=== PATIENT | female | born 1965 | race Caucasian/White ===

== ENCOUNTER → 2017-01-02 | Outpatient (CLI) | payer OTHER | END | disposition home or self-care (01) | LOC: C.PAPS 14:39 | PROVIDERS: ATTEND Family Medicine | DX: Z12.4 Encounter for screening for malignant neoplasm of cervix (principal) ==

== ENCOUNTER → 2017-12-26 | Outpatient (CLI) | payer BC ==
[2017-12-26 13:10] LABS: HEMOGLOBIN 13.9 g/dL (12.0-16.0); MEAN CELL VOLUME 90.1 fL (80-100); MEAN CORPUSCULAR HEMOGLOBIN 31.3 pg (25-34); MEAN CORPUSCULAR HGB CONC 34.8 g/dl (32-36); MEAN PLATELET VOLUME 9.2 fL (7.4-10.4); PLATELET COUNT 278 K/uL (130-400); RED CELL DISTRIBUTION WIDTH CV 12.4 % (11.5-14.5); RED CELL DISTRIBUTION WIDTH SD 40.5 fL (36.4-46.3); WHITE BLOOD COUNT 3.93 K/uL (4.8-10.8)
[2017-12-26 13:18] LABS: ALBUMIN 4.1 gm/dl (3.4-5.0); ALT/SGPT 23 U/L (12-78); AST/SGOT 23 U/L (15-37); BLOOD UREA NITROGEN 12 mg/dl (7-18); CALCIUM 9.1 mg/dl (8.5-10.1); CARBON DIOXIDE 27 mmol/L (21-32); CHOLESTEROL 151 mg/dl (0-200); CREATININE 0.81 mg/dl (0.60-1.20); GLUCOSE 89 mg/dl (70-99); POTASSIUM 3.7 mmol/L (3.5-5.1); SODIUM 141 mmol/L (136-145)
[2017-12-26 13:21] LABS: ALKALINE PHOSPHATASE 31 U/L (45-117); LDL CHOLESTEROL CALCULATED 74 mg/dl; TOTAL PROTEIN 7.1 gm/dl (6.4-8.2)
[2017-12-26 13:32] LABS: BASO % 0.5 %; BASO ABS # 0.02 K/uL (0-0.2); EOS % 2.8 %; EOS ABS # 0.11 K/uL (0-0.5); LYMPH % 51.4 %; LYMPH ABS # 2.02 K/uL (1.2-3.4); MONO % 6.9 %; MONO ABS # 0.27 K/uL (0.11-0.59); NEUT % 38.4 %; NEUT ABS # 1.51 K/uL (1.4-6.5)
== END | disposition home or self-care (01) ==
LOC: C.LABMFLN 09:36
PROVIDERS: ATTEND Family Medicine
DX: F32.9 Major depressive disorder, single episode, unspecified (principal); E78.5 Hyperlipidemia, unspecified

== ENCOUNTER → 2018-01-09 | Outpatient (CLI) | payer BC | END | disposition home or self-care (01) | LOC: C.LABMFLN 09:21 | PROVIDERS: ATTEND Family Medicine | DX: M81.0 Age-related osteoporosis without current pathological fracture (principal) ==

== ENCOUNTER 2018-04-03 05:42 | Observation (INO) | payer BC ==
[2018-03-28 15:47] VITALS: BMI 23.0
[2018-03-29 09:12] VITALS: Ht 147.3 cm; Wt 60.8 kg
--- NOTE | 2018-03-29 09:37 | PAT Medication Instructions ---
Service Date Mar 29, 2018. Current Home Medication List Alendronate/Cholecalciferol (Fosamax+D 70MG/2800 Iu), 1 TABLET PO WK Aspirin (Aspirin Ec), 81 MG PO QAM Calcium/Vitamin D (Os-Saul 500 Plus D), 1 TAB PO QAM Cholecalciferol (Vitamin D3), 1 TAB PO QAM Escitalopram Oxalate (Lexapro), 20 MG PO QAM Hydrocortisone Acetate (Rectal (Anusol-Hc), 25 MG [place] BID PRN for PRN Melatonin (Melatonin Maximum Strengt), 1 TAB PO HS PRN for Insomnia Psyllium (Metamucil), 1 DOSE PO QAM Simvastatin (Zocor), 20 MG PO HS Venlafaxine Hcl (Effexor), 37.5 MG PO QAM Medication Instructions For Your Scheduled Surgery -Continue as directed: Alendronate/Cholecalciferol (Fosamax+D 70MG/2800 Iu), 1 TABLET PO WK -Continue to hold per surgeon's instructions: Aspirin (Aspirin Ec), 81 MG PO QAM - Hold the following medications the morning of surgery: Calcium/Vitamin D (Os-Saul 500 Plus D), 1 TAB PO QAM Cholecalciferol (Vitamin D3), 1 TAB PO QAM Hydrocortisone Acetate (Rectal (Anusol-Hc), 25 MG [place] BID PRN for PRN Psyllium (Metamucil), 1 DOSE PO QAM - Take the following medications the morning of surgery with a sip of water: Escitalopram Oxalate (Lexapro), 20 MG PO QAM Venlafaxine Hcl (Effexor), 37.5 MG PO QAM - Take the following medications as scheduled the night before surgery: Melatonin (Melatonin Maximum Strengt), 1 TAB PO HS PRN for Insomnia (if needed) Simvastatin (Zocor), 20 MG PO HS If you have any questions please call us at [phone] or [phone] or [phone]
[2018-03-29 11:07] LABS: BASO % 0.5 %; BASO ABS # 0.02 K/uL (0-0.2); EOS % 2.9 %; EOS ABS # 0.12 K/uL (0-0.5); HEMATOCRIT 40.6 % (37-47); LYMPH % 49.3 %; LYMPH ABS # 2.04 K/uL (1.2-3.4); MEAN CORPUSCULAR HEMOGLOBIN 31.4 pg (25-34); MEAN CORPUSCULAR HGB CONC 34.5 g/dl (32-36); MEAN PLATELET VOLUME 9.2 fL (7.4-10.4); MONO % 8.5 %; MONO ABS # 0.35 K/uL (0.11-0.59); NEUT % 38.8 %; NEUT ABS # 1.61 K/uL (1.4-6.5); PLATELET COUNT 307 K/uL (130-400); RED CELL DISTRIBUTION WIDTH CV 12.6 % (11.5-14.5); RED CELL DISTRIBUTION WIDTH SD 41.7 fL (36.4-46.3); WHITE BLOOD COUNT 4.14 K/uL (4.8-10.8)
[2018-03-29 11:16] LABS: CREATININE 0.77 mg/dl (0.60-1.20)
[2018-03-29 11:17] LABS: CALCIUM 9.1 mg/dl (8.5-10.1); POTASSIUM 4.4 mmol/L (3.5-5.1)
[2018-04-03] VITALS (9 sets, daily range): BP systolic 96–130; BP diastolic 64–77; PULSE 74–89; TEMP 36.4–36.8; O2SAT 93–100
[~2018-04-03] VITALS: Ht 147.3 cm; Wt 60.8 kg
[~2018-04-03 05:42] MED LIST: ASPI81TA28 PO; CALC500C70 PO; CHOL1000 PO; EFF/375 PO; ESCI1TAB10 PO; FSMD/70 PO; HYDR25SU20 PR; MELATAB2 PO; PSYL48.59 PO; SIMV20TA2 PO
[2018-04-03] MEDS ORDERED: SCOPOLAMINE 1.5 MG TDSY TD SCH (06:00)
[2018-04-03] MEDS ORDERED: CEFAZOLIN 2000MG IV PUSH 15 ML IV SCH (06:00)
[2018-04-03] MEDS ORDERED: LACTATED RINGER'S 1000ML 1,000 ML IV SCH (06:00)
[2018-04-03] MEDS ORDERED: FENTANYL CITRATE INJ 50 MCG/1 ML 2 ML VIAL ONE (06:53)
[2018-04-03] MEDS ORDERED: LIDOCAINE HCL 2% 2 ML VIAL (20MG/ML) ONE (06:53)
[2018-04-03] MEDS ORDERED: ROCURONIUM BROMIDE 10 MG/ML 5 ML VIAL ONE ×2 (06:53→11:02)
[2018-04-03] MEDS ORDERED: MIDAZOLAM HCL 1 MG/ML 2ML VIAL ONE (06:53)
[2018-04-03] MEDS ORDERED: PROPOFOL IV EMULSION 10 MG/ML 20 ML VIAL ONE (06:53)
[2018-04-03] MEDS ORDERED: ONDANSETRON INJ 2 MG/ML 2 ML VIAL ONE (06:53)
[2018-04-03] MEDS ORDERED: GENTAMICIN SULFATE 40 MG/ML 2 ML VIAL ONE (06:58)
[2018-04-03] MEDS ORDERED: LIDOCAINE/EPINEPHRINE 1% 20 ML VIAL ONE (06:58)
[2018-04-03] MEDS ORDERED: BUPIVACAINE 0.25% 30 ML VIAL ONE (06:58)
[2018-04-03] MEDS ORDERED: BACITRACIN 50000 UNIT VIAL ONE (06:59)
[2018-04-03] MEDS ORDERED: CEFAZOLIN SOD 1 GM VIAL ONE (06:59)
--- NOTE | 2018-04-03 07:02 | History & Physical Bridge Note ---
H&P Re-Evaluation Bridge Note: I have examined the patient, reviewed the History & Physical and in the interval since the performance of the History & Physical I have noted the following changes of clinical significance: No changes noted
[2018-04-03] MEDS ORDERED: FENTANYL CITRATE INJ 50 MCG/1 ML 2 ML VIAL IV PRN (07:30)
[2018-04-03] MEDS ORDERED: ONDANSETRON INJ 2 MG/ML 2 ML VIAL IV PRN ×2 (07:30→11:15)
[2018-04-03] MEDS ORDERED: ATROPINE SULFATE 0.1 MG/ML 5ML SYR IV PRN (07:30)
[2018-04-03] MEDS ORDERED: EpHEDrine SULFATE INJ 50 MG/ML AMP IV PRN (07:30)
[2018-04-03] MEDS ORDERED: HYDROmorphone INJ 1 MG/ML SYR IV PRN (07:30)
[2018-04-03] MEDS ORDERED: PHENYLEPHRINE 100MCG/ML 5ML SYR ONE (08:28)
[2018-04-03] MEDS ORDERED: EpHEDrine SULFATE 50MG/5ML SYR ONE (08:28)
[2018-04-03] MEDS ORDERED: ACETAMINOPHEN 1000 MG/100 ML IV IV ONE (08:37)
[2018-04-03] MEDS ORDERED: MoRPHine SULFATE PF 1 MG/ML 10 ML AMP/VIAL ONE (09:46)
[2018-04-03] MEDS ORDERED: MoRPHine SULFATE 2 MG/ML CARP IV PRN (11:15)
[2018-04-03] MEDS ORDERED: HYDROCORTISONE ACETATE 25 MG SUPP PR PRN (11:15)
[2018-04-03] MEDS ORDERED: MoRPHine SULFATE 4 MG/ML 1 ML CARP\\VIAL IV PRN ×2 (11:15)
[2018-04-03] MEDS ORDERED: PROMETHAZINE HCL INJ 12.5 MG in SODIUM CHLORIDE 0.9% 50ML 50 ML IV PRN (11:15)
[2018-04-03] MEDS ORDERED: OXAZEPAM 10MG CAP PO PRN (11:15)
[2018-04-03] MEDS ORDERED: NON-FORMULARY MEDICATION (Melatonin (Melatonin Maximum Strengt) 1 TAB) PO PRN (11:15)
[2018-04-03] MEDS ORDERED: DiphenhydrAMINE HCL 50 MG/ML VIAL IV PRN (11:15)
[2018-04-03] MEDS ORDERED: ACETAMINOPHEN 325 MG TAB PO PRN (11:15)
[2018-04-03] MEDS ORDERED: CEFAZOLIN IV 1,000 MG in DEXTROSE 5% 50ML 50 ML IV SCH (11:15)
[2018-04-03] MEDS ORDERED: OXYCODONE/ACETAMINOPHEN 5-325 TAB PO PRN ×2 (11:15)
--- NOTE | 2018-04-03 11:15 | [facility] Post Operative Brief Note ---
Immediate Operative Summary Operative Date Apr 03, 2018. Pre-Operative Diagnosis Bilateral Symptomatic Macromastia Post-Operative Diagnosis Same as preop Procedure(s) Performed Bilateral Breast Reduction with Free Nipple Graft Surgeon Dr. Morales Neurology Tech Surgeon(s) None Estimated Blood Loss 25 ml Findings Consistent with Post-Op Diagnosis Specimens A. Left Breast Tissue wt. 382 grams B. Right Breast Tissue wt. 388 grams Drains JPx2 Anesthesia Type General Complication(s) none Disposition Disposition: Recovery Room / PACU
[2018-04-03] MEDS ORDERED: IV FLUIDS COMPLETED PRN (12:45)
[2018-04-03] MEDS ORDERED: VENL-57 PO (13:03)
--- NOTE | 2018-04-03 14:12 | Anesthesiology Progress Note ---
Anesthesia Post Op Note Date & Time Apr 03, 2018 at 14:10 Vital Signs Pain Intensity: 0 Vital Signs Past 12 Hours Date Time Temp Pulse Resp B/P (MAP) Pulse Ox O2 Delivery O2 Flow Rate FiO2 04/03/18 13:05 85 16 99/64 (76) 99 2.0 04/03/18 12:55 80 16 106/73 (84) 100 2.0 04/03/18 12:25 97 Nasal Cannula 4.0 04/03/18 12:25 97 Nasal Cannula 4.0 04/03/18 12:24 36.5 86 15 96/64 (75) 97 Nasal Cannula 4.0 04/03/18 12:10 36.4 78 24 101/61 99 Nasal Cannula 4 04/03/18 12:00 36.4 78 17 110/67 100 Nasal Cannula 4 04/03/18 11:50 82 14 103/69 99 Nasal Cannula 4 04/03/18 11:40 78 14 101/74 97 Oxymask 10 04/03/18 11:30 92 15 123/74 100 Oxymask 10 04/03/18 11:23 36.2 100 20 118/81 97 Oxymask 10 04/03/18 06:02 36.6 75 18 130/77 (94) 97 Room Air Notes Mental Status: alert / awake / arousable, participated in evaluation Pt Amnestic to Procedure: Yes Nausea / Vomiting: adequately controlled Pain: adequately controlled Airway Patency, RR, SpO2: stable & adequate BP & HR: stable & adequate Hydration State: stable & adequate Anesthetic Complications: no major complications apparent
[2018-04-03] MEDS: CEFAZOLIN IV 1,000 MG in SYRINGE 0 ML IV SCH ×2 (14:29→22:22)
[2018-04-03] MEDS: D5W AND 1/2NSS + 20MEQ KCL 1,000 ML IV SCH (14:29)
[2018-04-03] MEDS: CHECK SCOPOLAMINE PATCH PLACEMENT SCH (15:29)
--- NOTE | 2018-04-03 19:17 | OPERATIVE REPORT ---
DATE OF OPERATION: 04/03/2018 PREOPERATIVE DIAGNOSIS: Bilateral symptomatic macromastia. POSTOPERATIVE DIAGNOSIS: Bilateral symptomatic macromastia. PROCEDURE: Bilateral breast reduction with free nipple graft. SURGEON: Dr. Kasandra Morales. UNIX ANALYST: Sadaf Kim PA-C. ESTIMATED BLOOD LOSS: 25 mL. COMPLICATIONS: None. INDICATION FOR THE PROCEDURE: The patient is a 52-year-old female who presented to my office with complaints of back, neck, and shoulder pain as a result of macromastia. She had previously undergone breast reduction surgery about 20 years ago in the [place] area by an unknown surgeon. She reported dissatisfaction with the results following that wishing that she had been a smaller size and that there was asymmetry in the final outcome. Over time, breasts got larger again and she desired to have secondary reduction performed. As there were no operative records and she was uncertain of the technique that was used, we elected to perform this with a free nipple graft. BRIEF DESCRIPTION OF THE PROCEDURE: The risks, benefits, and alternatives of the procedure were explained to the patient who agreed and signed consent. She was identified and marked in the preoperative holding area. She was brought to the operating room where she was positioned supine and placed under general anesthesia without incident. Surgical site markings were again reassessed. I began with the left breast. Lidocaine 1% with epinephrine was used to anesthetize the planned incisions as well as the nipple areolar complex. A breast tourniquet was applied using a Kate clamp and lap sponge. A 42 mm cookie cutter was used to circumscribe the nipple-areolar complex. The nipple-areolar complex was then removed as a full thickness graft and placed on the back table in a saline soaked sponge. At this point, tourniquet was released and the inframammary fold incision was made using a 15 blade scalpel. Electrocautery was used to deepen the incision through subcutaneous fat and breast parenchyma down to chest wall. Care was taken to perform this in a beveled direction ligating vessels as needed and achieving hemostasis with electrocautery. Once the breast was mostly undermined, the superior incision was then made to the inferior aspect of the keyhole incision. This was performed using a 15 blade scalpel. The incision was then deepened using electrocautery and additional breast parenchyma was resected again in beveled fashion in order to retain some projection of the breast. Tissue was passed off for weighing. Additional resection was performed until we achieved the desired size and the wound was able to be closed with minimal tension. This was a total of 382 grams on the left side. Hemostasis was achieved with electrocautery. The wound bed was anesthetized using 0.25% Marcaine plain. A 15-H[place]er Sohail drain was brought through a separate stab incision laterally toward the axilla. The keyhole was then incised using a 15 blade scalpel and deepithelialized. The T-junction was then brought together using 2-0 Vicryl suture. Closure was begun first lateral to medial using 2-0 Vicryl deep dermal sutures. The vertical limb was closed using a combination of 2-0 Vicryl deep dermal sutures and 3-0 PDS interrupted dermal sutures. The inframammary fold was closed using 2-0 PDO deep dermal running Quill suture. Vertical limb was then closed using 3-0 Monocryl running subcuticular suture. The nipple-areolar complex was inspected and thinned using a curved iris scissor. It was placed in the recipient bed and sutured into place using 4-0 silk tie over bolster sutures and 4-0 chromic interrupted sutures. A similar procedure was undertaken on the right side. Total resection weight was 388 grams on the right. It should be noted that while preoperatively the left breast did appear to be larger. I did attempt to perform temporary closure of the breast with a smaller amount of resected tissue on the right and the right breast appeared to be substantially larger and therefore I continued resection. Following the close of the case, there was excellent symmetry between the breasts. There were no complications. Dermabond Prineo was applied to the incisions. Dry dressings followed by a surgical bra were placed. The patient was awakened and transferred to recovery in satisfactory condition. Sadaf Kim was present and scrubbed throughout the entire procedure and was instrumental in providing retraction, preparing the nipple graft, and assisting in simultaneous wound closure. I attest to the content of the Intraoperative Record and any orders documented therein. Any exception s are noted below.
[2018-04-03] MEDS ORDERED: SIMVASTATIN 20 MG TAB PO SCH (21:00)
[2018-04-04] MEDS: CHECK SCOPOLAMINE PATCH PLACEMENT SCH ×2 (00:14→08:00)
[2018-04-04 04:07] VITALS: BP 97/67; PULSE 91; TEMP 36.9; O2SAT 93
[2018-04-04 07:36] VITALS: BP 118/68; PULSE 98; TEMP 37.3; O2SAT 94
[2018-04-04 07:45] VITALS: BP 118/68; PULSE 98; TEMP 37.3; O2SAT 94
--- NOTE | 2018-04-04 07:48 | Surgery Progress Note ---
Surgery Progress Note Date of Service Apr 04, 2018. Subjective Post OP Day: 1 + feeling well, + ambulating, + pain controlled, + nausea Objective Vital Signs: Date Time Temp Pulse Resp B/P (MAP) Pulse Ox O2 Delivery O2 Flow Rate FiO2 04/04/18 07:36 37.3 98 20 118/68 (85) 94 Room Air 04/04/18 04:07 36.9 91 14 97/67 (77) 93 Room Air 04/03/18 23:50 Room Air 04/03/18 23:14 36.8 89 16 102/69 (80) 95 Room Air 04/03/18 19:48 36.6 76 17 100/68 (79) 98 Room Air 04/03/18 15:25 Room Air 04/03/18 15:07 36.4 81 17 100/67 (78) 98 Room Air 04/03/18 14:05 74 16 100/67 (78) 93 Room Air 04/03/18 13:05 85 16 99/64 (76) 99 2.0 04/03/18 12:55 80 16 106/73 (84) 100 2.0 04/03/18 12:25 97 Nasal Cannula 4.0 04/03/18 12:25 97 Nasal Cannula 4.0 04/03/18 12:24 36.5 86 15 96/64 (75) 97 Nasal Cannula 4.0 04/03/18 12:10 36.4 78 24 101/61 99 Nasal Cannula 4 04/03/18 12:00 36.4 78 17 110/67 100 Nasal Cannula 4 04/03/18 11:50 82 14 103/69 99 Nasal Cannula 4 04/03/18 11:40 78 14 101/74 97 Oxymask 10 04/03/18 11:30 92 15 123/74 100 Oxymask 10 04/03/18 11:23 36.2 100 20 118/81 97 Oxymask 10 Physical Exam: Sohail drainage (bloody and serous) General Appearance: WD/WN, no apparent distress Incision(s): clean, dry, intact, no erythema, findings (bolster dressings in place) Assessment & Plan s/p bilateral breast reduction with free nipple graft 1/ drains removed. d/c home today with f/u in office next week
--- NOTE | 2018-04-04 07:51 | Discharge Instructions ---
Discharge Instructions Date of Service Apr 04, 2018. Admission Reason for Admission: Symptomatic Macromastia Discharge Discharge Diagnosis / Problem: macromastia Discharge Goals Goal(s): Decrease discomfort Activity Recommendations Activity Limitations: per Instructions/Follow-up section ACTIVITY RECOMMENDATIONS: __Normal activities _x_No bending, lifting or straining __No driving __Driving allowed when you are off pain medications _x_Walking permitted __You should have help at home for ___ days DRESSINGS: __No dressings required _x_Keep dressings dry/in place until first office visit __Remove dressings ___ and leave dressings off __Apply ice ___ days __Remove dressings and reapply garment __Apply antibiotic ointment (Bacitracin, Neosporin, etc) to wounds 3-4 times/ day for 10 days BATHING: _x_Keep dressings dry _x_Sponge bathing permitted away from breasts __Showering permitted _x_No swimming, hot tubs or soaking in a tub MEDICATIONS: Resume previous medications unless instructed otherwise by your surgeon. _x_Do not use aspirin, Motrin, Advil or Ibuprofen as these may promote bleeding. Please use Tylenol. _x_Prescription(s) provided: scripts for pain control and antibiotics were provided at your last office visit. start antibiotics today. Script for anti- nausea sent to [facility] today OTHER INSTRUCTIONS: __Record drain output 2-3 times per day SPECIAL CARE INSTRUCTIONS: * It is normal to have a mild fever after surgery. If your temperature is higher than 101.5 degrees F, please call the office at [phone]. * Constipation is a typical side effect of pain medication. An over-the- counter stool softener will help relieve this. * Leaking around surgical drains may occur and should not cause concern. Sometimes these drains become clogged. If this happens, remove the bulb and milk the clot out of the tube, then replace the bulb. * Drainage from wounds after liposuction is normal and should be expected. Garments will become soiled. You should protect furniture and bedding. This drainage should mostly subside within 2-3 days. Leave garments in place unless instructed to remove them. * If you have unusual drainage from a wound or are concerned you have an infection or have any questions or concerns, please call the office at [phone]. FOLLOW UP VISIT: If not already scheduled, please call the office, , when you return home after surgery to schedule an appointment to be seen in _5__ days. . Current Hospital Diet Patient's current hospital diet: Regular Diet Discharge Diet Recommended Diet: Regular Diet Procedures Procedures Performed: Bilateral Breast Reduction with Free Nipple Graft Pending Studies Studies pending at discharge: yes List of pending studies: pathology Medical Emergencies . Who to Call and When: Medical Emergencies: If at any time you feel your situation is an emergency, please call 911 immediately. . Non-Emergent Contact Non-Emergency issues call your: Primary Care Provider . "Provider Documentation" section prepared by Sanjuana Michel. Zoë PA Drug Monitoring Program Search Results: no issues identified
[2018-04-04 08:08] VITALS: O2SAT 94
[2018-04-04] MEDS ORDERED: PSYLLIUM 58.6% PWD PACK S\\F PO SCH ×2 (09:00)
[2018-04-04] MEDS ORDERED: VENLAFAXINE HCL XR 37.5 MG CAPXR PO SCH (09:00)
[2018-04-04] MEDS ORDERED: ESCITALOPRAM OXALATE 20 MG TAB PO SCH (09:00)
[2018-04-04] MEDS ORDERED: ENOXAPARIN 40 MG/0.4 ML SYR SQ SCH (09:00)
[2018-04-04] MEDS ORDERED: CALCIUM 600MG + VIT D 400 IU TAB PO SCH (09:00)
[2018-04-04] MEDS ORDERED: MULTIVITAMIN TAB PO SCH (09:00)
[2018-04-04] MEDS: D5W AND 1/2NSS + 20MEQ KCL 1,000 ML IV SCH ×2 (09:05)
--- NOTE | 2018-04-05 08:25 | Discharge Summary ---
Discharge Summary Date of Service Apr 05, 2018. Admission Date/Reason Apr 03, 2018 at 11:20 Symptomatic Macromastia. Discharge Date/Disposition Apr 04, 2018 Home Diagnosis Principal Diagnosis: symptomatic macromastia Procedure(s) Performed bilateral breast reduction with free nipple graft Medication Reconciliation Continued Medications: Alendronate/Cholecalciferol (Fosamax+D 70MG/2800 Iu) 70 Mg Tab 1 TABLET PO WK, TAB Calcium/Vitamin D (Os-Saul 500 Plus D) Tab 1 TAB PO QAM, TAB Cholecalciferol (Vitamin D3) 1,000 Unit Tab 1 TAB PO QAM for 90 Days, #90 TAB 3 Refills Escitalopram Oxalate (Lexapro) 20 Mg Tab 20 MG PO QAM, TAB Hydrocortisone Acetate (Rectal (Anusol-Hc) 25 Mg Sup 25 MG [place] BID PRN for PRN, #7 SUP Melatonin (Melatonin Maximum Strengt) 5 Mg Tab 1 TAB PO HS PRN for Insomnia for 30 Days, #30 TAB 1 Refill Psyllium (Metamucil) 48.57 % Pow 1 DOSE PO QAM Simvastatin (Zocor) 20 Mg Tab 20 MG PO HS, TAB Venlafaxine HCl (Venlafaxine HCl ER) 37.5 Mg Capcr 37.5 MG PO QAM Discontinued Medications: Aspirin (Aspirin Ec) 81 Mg Tab 81 MG PO QAM PT STOPPED ON SUNDAY, February IN PREP FOR SURGERY Admission Physical Exam As per Admitting History & Physical. Hospital Course Patient presented to [facility] with history of symptomatic macromastia. She was taken to the OR and underwent bilateral breast reduction with free nipple graft. There were no intraoperative complications. She was taken to recovery and transferred to med/surg for observation. On POD#1, her pain was controlled. She was ambulating. On exam, her incisions were CDI, and bolster dressings intact. Her drains were removed. VSS. Patient was discharged to home and instructed to follow-up in the office. Discharge Instructions Please refer to the electronic Patient Visit Report (Discharge Instructions) for additional information.
== END 2018-04-04 10:26 | disposition home or self-care (01) ==
LOC: C.ACU 05:42 → C.MSW 11:20 → ENRESERV 11:59
PROVIDERS: ADMIT Plastic Surgery; ATTEND Plastic Surgery
DX: N62 Hypertrophy of breast (principal); K21.9 Gastro-esophageal reflux disease without esophagitis; F32.9 Major depressive disorder, single episode, unspecified; E78.5 Hyperlipidemia, unspecified; M81.0 Age-related osteoporosis without current pathological fracture; Z79.82 Long term (current) use of aspirin; Z88.6 Allergy status to analgesic agent